=== PATIENT | female | born 1970 | race Caucasian/White ===

== ENCOUNTER → 2020-11-23 | Outpatient (CLI) | payer OTHER ==
[2020-11-23 12:21] LABS: HEMOGLOBIN 14.5 gm/dl (12.3-15.3); RED BLOOD COUNT 4.65 M/UL (4.00-5.10); WHITE BLOOD COUNT 4.8 K/UL (4.5-11.0)
[2020-11-23 12:43] LABS: BUN/CREATININE RATIO 21 (0-10)
[2020-11-24 07:11] LABS: RHEUMATOID ARTHRITIS FACTOR 10.5 IU/mL (0.0-13.9); VITAMIN D, 25-HYDROXY 22.5 ng/mL (30.0-100.0)
== END ==
LOC: LAB 09:49
PROVIDERS: Nurse Practitioner Family
DX: M25.50 Pain in unspecified joint (principal); M79.10 Myalgia, unspecified site
CPT/HCPCS: 36415; 73630; 80053; 82550; 82728; 83520; 85025; 85652; 86140; 86200; 86431